=== PATIENT | male | born 1955 | race Caucasian/White ===

== ENCOUNTER 2023-09-30 14:10 | Emergency (ER) | payer OTHER, MEDICARE ==
[~2023-09-30] VITALS: Ht 180.3 cm; Wt 145.1 kg
[2023-09-30 16:44] VITALS: BP 156/74; PULSE 88; RESP 20
== END 2023-09-30 16:46 | disposition home or self-care (01) ==
LOC: EDH 14:10
DX: R09.89 Other specified symptoms and signs involving the circulatory and respiratory systems (principal); R11.2 Nausea with vomiting, unspecified; I10 Essential (primary) hypertension; E11.9 Type 2 diabetes mellitus without complications
CPT/HCPCS: 71045

== ENCOUNTER 2023-12-30 11:50 | Emergency (ER) | payer OTHER, MEDICARE ==
[~2023-12-30] VITALS: Ht 177.8 cm; Wt 167.8 kg
[2023-12-30 12:11] VITALS: BP 103/56; PULSE 60; RESP 18; O2SAT 96
[2023-12-30 12:17] LABS: BASOPHILS # (AUTO) 0.03 K/uL (0.00-0.20); BASOPHILS % (AUTO) 0.3 % (0.0-5.0); EOSINOPHILS % (AUTO) 5.9 % (0.0-8.0); HEMATOCRIT 31.9 % (42-54); IMMATURE GRANULOCYTE ABSOLUTE 0.09 K/uL (0-1); LYMPHOCYTES % (AUTO) 8.2 % (21.0-51.0); MEAN CORPUSCULAR HEMOGLOBIN 28.7 pg (27.0-33.0); MEAN CORPUSCULAR VOLUME 92.5 fL (79-99); MONOCYTES # (AUTO) 0.7 K/uL (0.1-1.0); MONOCYTES % (AUTO) 6.1 % (3.0-13.0); NEUTROPHILS # (AUTO) 9.3 K/uL (1.8-7.7); NEUTROPHILS % (AUTO) 78.7 % (40.0-77.0); PLATELET COUNT (AUTO) 262 K/uL (130-400); RED BLOOD CELL COUNT(AUTO) 3.45 MIL/uL (4.50-6.20); RED CELL DISTRIBUTION WIDTH 15.5 % (11.0-15.5); WHITE BLOOD COUNT (AUTO) 11.8 K/uL (4.8-10.8)
[2023-12-30 12:35] LABS: CREATININE 1.1 mg/dL (0.5-1.3); POTASSIUM 4.9 mmol/L (3.5-5.1)
[2023-12-30 12:41] LABS: ALBUMIN 2.2 g/dL (3.5-5.0); BILIRUBIN,TOTAL 0.4 mg/dL (0.2-1.0); MAGNESIUM 1.7 mg/dL (1.80-2.40); TOTAL PROTEIN, SERUM 6.6 g/dL (6.0-8.3)
== END 2023-12-30 14:03 ==
LOC: EDH 11:50
DX: E66.9 Obesity, unspecified (principal); E86.0 Dehydration; R53.81 Other malaise; E11.9 Type 2 diabetes mellitus without complications; E78.00 Pure hypercholesterolemia, unspecified; E87.5 Hyperkalemia; I11.0 Hypertensive heart disease with heart failure; I50.9 Heart failure, unspecified; J44.9 Chronic obstructive pulmonary disease, unspecified; F32.A Depression, unspecified; Z68.43 Body mass index [BMI] 50.0-59.9, adult
CPT/HCPCS: 36415; 80053; 82948; 83735; 84484; 85025; 93005